=== PATIENT | male | born 1955 | race Caucasian/White ===

== ENCOUNTER → 2016-09-10 | Outpatient (CLI) | payer OTHER ==
[2016-09-10 14:08] LABS: EOSINOPHILS # (AUTO) 0.3 10^3/uL (0.0-0.7); LYMPHOCYTES # (AUTO) 1.3 10^3/uL (1.5-3.5); MEAN CORPUSCULAR HGB CONC 33.3 g/dL (32.0-36.0); MEAN PLATELET VOLUME 8.6 fL (7.4-11.4); NEUTROPHILS # (AUTO) 3.9 10^3/uL (1.5-6.6)
[2016-09-10 14:11] LABS: BASOPHILS % (AUTO) 0.8 %; EOSINOPHILS % (AUTO) 4.8 %; HCT - HEMATOCRIT 45.2 % (42.0-52.0); MEAN CORPUSCULAR HEMOGLOBIN 29.7 pg (27.0-31.0); MEAN CORPUSCULAR VOLUME 89.1 fL (80.0-94.0); MONOCYTES # (AUTO) 0.4 10^3/uL (0.0-1.0); MONOCYTES % (AUTO) 7.3 %; NEUTROPHILS % (AUTO) 65.1 %; NUCLEATED RED BLOOD CELLS AUTO 0.3 /100WBC; RED BLOOD COUNT 5.07 10^6/uL (4.70-6.10); RED CELL DISTRIBUTION WIDTH 13.5 % (12.0-15.0)
[2016-09-10 14:27] LABS: ALBUMIN/GLOBULIN RATIO 1.3 (1.0-2.2); BILIRUBIN,TOTAL 0.8 mg/dL (0.2-1.0); CALCIUM 8.9 mg/dL (8.5-10.3)
== END ==
LOC: LAB.WCP 08:00
PROVIDERS: ATTEND Physician Assistant Medical
DX: R06.09 Other forms of dyspnea (principal); E29.1 Testicular hypofunction
CPT/HCPCS: 36415; 80053; 83880; 85025

== ENCOUNTER 2016-10-20 09:41 | Outpatient (CLI) | payer OTHER ==
[2016-10-20 12:53] LABS: CALCIUM 8.9 mg/dL (8.5-10.3); POTASSIUM 4.1 mmol/L (3.5-5.0)
== END 2016-10-20 09:42 | disposition home or self-care (01) ==
LOC: LAB.WCP 09:41
PROVIDERS: ATTEND Physician Assistant Medical
DX: I25.10 Atherosclerotic heart disease of native coronary artery without angina pectoris (principal)
CPT/HCPCS: 36415; 80048

== ENCOUNTER 2017-03-20 15:44 | Emergency (ER) | payer OTHER ==
--- NOTE | 2017-03-20 16:12 | ED Physician Documentation ---
PD HPI URI - Stated complaint Stated Complaint: COUGH/GREEN MUCUS - Chief complaint Chief Complaint: Resp - History obtained from History obtained from: Patient - History of Present Illness Timing - onset: How many days ago (few) Timing duration: Days Timing details: Gradual onset, Still present Associated symptoms: Chills, Nasal congestion, Productive cough, Dyspnea. No: NVD, Bilateral edema Contributing factors: Sick contact. No: Travel, Immunocompromised, COPD / asthma Similar symptoms before: Has not had sx before Review of Systems Constitutional: reports: Chills, Myalgias. denies: Fever Nose: reports: Congestion Throat: denies: Sore throat Cardiac: denies: Chest pain / pressure, Palpitations Respiratory: reports: Dyspnea, Cough (productive green sputum), Wheezing GI: denies: Abdominal Pain, Nausea, Vomiting, Diarrhea Musculoskeletal: denies: Extremity swelling PD PAST MEDICAL HISTORY - Past Medical History Cardiovascular: Hypertension, High cholesterol, CT Respiratory: None Neuro: None Endocrine/Autoimmune: None GI: GERD - Past Surgical History Past Surgical History: Yes Cardiovascular: Coronary stent - Present Medications Home Medications: Ambulatory Orders Medication Instructions Recorded Confirmed Aspirin/Acetaminophen/Caffeine 1 each PO DAILY 12/11/12 03/20/17 [Headache Relief Caplet] Famotidine [Pepcid] 40 mg PO BID 12/11/12 03/20/17 Metoprolol Tartrate [Lopressor] 75 mg PO BID 12/11/12 03/20/17 Simvastatin [Zocor] 80 mg PO HS 12/11/12 03/20/17 Albuterol Sulf [Ventolin Hfa 1 - 2 puffs INH Q4HR PRN #1 inhaler 03/20/17 Inhaler] Benzonatate [Tessalon] 100 mg PO TID PRN #25 capsule 03/20/17 Dexamethasone [Decadron] 4 mg PO DAILY #5 tablet 03/20/17 Doxycycline Monohydrate 100 mg PO BID #14 tablet 03/20/17 - Allergies Allergies/Adverse Reactions: Allergies Allergy/AdvReac Type Severity Reaction Status Date / Time No Known Drug Allergies Allergy Verified 03/20/17 15:57 - Social History Does the pt smoke?: No Smoking Status: Never smoker Does the pt drink ETOH?: No Does the pt have substance abuse?: Yes PD ED PE NORMAL - General General: Alert and oriented X 3, No acute distress, Well developed/nourished - HEENT HEENT: Atraumatic, Pharynx benign - Neck Neck: Supple, no meningeal sign, No adenopathy - Cardiac Cardiac: RRR, No murmur, No rub - Respiratory Respiratory: Clear bilaterally, Other (bedside U/S showed no obvious pericardial effusion) - Abdomen Abdomen: Soft, Non tender - Male Male : Deferred - Rectal Rectal: Deferred - Derm Derm: Normal color, Warm and dry - Neuro Neuro: Alert and oriented X 3, No motor deficit, Normal speech Results - Vitals Vitals: Oxygen O2 Source Room air - EKG (time done) 16:58 Rate: Rate (enter#) (88) Rhythm: NSR [place]: Normal Intervals: Normal [place] QRS: Normal Ischemia: Normal ST segments, Non specific changes (t wave flattening, no ST changes.). No: ST elevation c/w ischemia, ST depression, T wave inversion - Labs Labs: Laboratory Tests 03/20/17 03/20/17 03/20/17 16:20 16:20 16:20 WBC 9.0 RBC 5.01 Hgb 14.6 Hct 45.5 MCV 90.8 MCH 29.1 MCHC 32.0 RDW 13.0 Plt Count 254 MPV 7.9 Neut # 5.8 Lymph # 1.6 Riley # 1.2 H Eos # 0.3 Baso # 0.1 Absolute Nucleated RBC 0.00 Nucleated RBC % 0.0 Sodium 140 Potassium 3.6 Chloride 102 Carbon Dioxide 26 Anion Gap 12.0 BUN 18 Creatinine 0.9 Estimated GFR (MDRD) 86 L Glucose 111 H Calcium 9.0 Total Bilirubin 0.5 AST 34 ALT 40 Alkaline Phosphatase 103 Troponin I < 0.04 B-Natriuretic Peptide Total Protein 7.3 Albumin 4.1 Globulin 3.2 Albumin/Globulin Ratio 1.3 Lipase 58 H 03/20/17 16:20 WBC RBC Hgb Hct MCV MCH MCHC RDW Plt Count MPV Neut # Lymph # Riley # Eos # Baso # Absolute Nucleated RBC Nucleated RBC % Sodium Potassium Chloride Carbon Dioxide Anion Gap BUN Creatinine Estimated GFR (MDRD) Glucose Calcium Total Bilirubin AST ALT Alkaline Phosphatase Troponin I B-Natriuretic Peptide 46 Total Protein Albumin Globulin Albumin/Globulin Ratio Lipase - Rads (name of study) chest Radiology: Prelim report reviewed, EMP read contemporaneously (no infiltrates nor acute findings; prior granulomatous findings similar to prior. ) PD MEDICAL DECISION MAKING - ED course Complexity details: reviewed results, considered differential, d/w patient Departure - Departure Disposition: 01 Home, Self Care Clinical Impression: Bronchitis Clinical Impression: (Ruled Out): Pneumonia Condition: Stable Record reviewed to determine appropriate education?: Yes Instructions: ED Upper Resp Infec Abx Tx Follow-Up: Terrnace Bernard MD [Primary Care Provider] - Prescriptions: Albuterol Sulf [Ventolin Hfa Inhaler] 1 - 2 puffs INH Q4HR PRN #1 inhaler PRN Reason: Shortness Of Air/Wheezing Benzonatate [Tessalon] 100 mg PO TID PRN #25 capsule PRN Reason: Cough Dexamethasone [Decadron] 4 mg PO DAILY #5 tablet Doxycycline Monohydrate 100 mg PO BID #14 tablet Comments: Infections such as yours can most commonly be viral although your sounds to be more likely bacterial. Use albuterol inhaler 2 puffs 4 times a day and extra times as needed for cough and wheezing. Decadron anti-inflammatory daily for 5 more days. Doxycycline antibiotic twice daily for a week. Use Tessalon if needed for cough. Recheck if not improving over the next several days and return sooner if worsening. Your chest x-ray does not show any signs of pneumonia. There is no signs of heart failure or fluid around the heart. Discharge Date/Time: 03/20/17 18:10
[2017-03-20 16:29] LABS: BASOPHILS # (AUTO) 0.1 10^3/uL (0.0-0.1); BASOPHILS % (AUTO) 1.1 %; EOSINOPHILS # (AUTO) 0.3 10^3/uL (0.0-0.7); EOSINOPHILS % (AUTO) 2.8 %; HGB - HEMOGLOBIN 14.6 g/dL (14.0-18.0); LYMPHOCYTES # (AUTO) 1.6 10^3/uL (1.5-3.5); LYMPHOCYTES % (AUTO) 17.7 %; MEAN CORPUSCULAR HEMOGLOBIN 29.1 pg (27.0-31.0); MEAN CORPUSCULAR VOLUME 90.8 fL (80.0-94.0); MEAN PLATELET VOLUME 7.9 fL (7.4-11.4); MONOCYTES # (AUTO) 1.2 10^3/uL (0.0-1.0); MONOCYTES % (AUTO) 13.1 %; NEUTROPHILS # (AUTO) 5.8 10^3/uL (1.5-6.6); NEUTROPHILS % (AUTO) 65.3 %; PLT - PLATELET COUNT 254 10^3/uL (130-450); RED BLOOD COUNT 5.01 10^6/uL (4.70-6.10)
--- NOTE | 2017-03-20 16:35 | XRAY Report ---
EXAM: CHEST RADIOGRAPHY EXAM DATE: 03/20/2017 04:19 PM. CLINICAL HISTORY: Productive cough. COMPARISON: 07/31/2008. TECHNIQUE: 1 view. FINDINGS: Lungs/Pleura: Multiple calcified granulomas are again seen. No consolidation. No pneumothorax. No vas cular congestion. Mediastinum: Heart size is upper normal. Aorta is mildly tortuous. Other: Changes are seen from median sternotomy in the interval and likely bypass surgery. IMPRESSION: 1. No acute disease in the chest. 2. Multiple calcified granulomas consistent with prior granulomatous disease, unchanged. [facility] Referring Provider Line: [phone] SITE ID: [id number]
[2017-03-20 16:39] LABS: ALBUMIN 4.1 g/dL (3.2-5.5); ALBUMIN/GLOBULIN RATIO 1.3 (1.0-2.2); BILIRUBIN,TOTAL 0.5 mg/dL (0.2-1.0); CREATININE 0.9 mg/dL (0.6-1.2); TOTAL PROTEIN 7.3 g/dL (6.7-8.2)
[2017-03-20] MEDS ORDERED: ALBUTEROL NEB 2.5 MG/3 ML INH STA (16:42)
[2017-03-20] MEDS ORDERED: BENZONATATE 100 MG CAPSULE PO STA (16:43)
[2017-03-20] MEDS ORDERED: DOXYCYCLINE 100 MG TABLET PO STA (16:43)
[2017-03-20] MEDS ORDERED: DEXAMETHASONE 10 MG/ML VIAL PO STA (16:43)
[2017-03-20] MEDS ORDERED: CHERRY SYRUP 10 ML UDC PO ONE (17:27)
[2017-03-20 20:01] VITALS: BP 156/82
== END 2017-03-20 18:10 | disposition home or self-care (01) ==
LOC: ED 15:44
DX: J40 Bronchitis, not specified as acute or chronic (principal); I10 Essential (primary) hypertension; I25.2 Old myocardial infarction; E78.00 Pure hypercholesterolemia, unspecified; Z79.82 Long term (current) use of aspirin; Z95.5 Presence of coronary angioplasty implant and graft
CPT/HCPCS: 36415; 71045; 80053; 83690; 83880; 84484; 85025; 93005; 94640; 99283; A9270; J7613

== ENCOUNTER 2017-11-29 16:10 | Outpatient (CLI) | payer OTHER ==
[2017-11-29 19:08] LABS: BASOPHILS # (AUTO) 0.1 10^3/uL (0.0-0.1); EOSINOPHILS # (AUTO) 0.4 10^3/uL (0.0-0.7); EOSINOPHILS % (AUTO) 4.8 %; HGB - HEMOGLOBIN 15.3 g/dL (14.0-18.0); LYMPHOCYTES # (AUTO) 1.8 10^3/uL (1.5-3.5); LYMPHOCYTES % (AUTO) 23.9 %; MEAN CORPUSCULAR HEMOGLOBIN 30.9 pg (27.0-31.0); MEAN CORPUSCULAR HGB CONC 34.5 g/dL (32.0-36.0); MEAN CORPUSCULAR VOLUME 89.4 fL (80.0-94.0); MEAN PLATELET VOLUME 8.4 fL (7.4-11.4); MONOCYTES # (AUTO) 0.8 10^3/uL (0.0-1.0); NEUTROPHILS # (AUTO) 4.6 10^3/uL (1.5-6.6); NEUTROPHILS % (AUTO) 60.3 %; PLT - PLATELET COUNT 195 10^3/uL (130-450); RED BLOOD COUNT 4.97 10^6/uL (4.70-6.10); RED CELL DISTRIBUTION WIDTH 13.6 % (12.0-15.0); WHITE BLOOD COUNT 7.6 x10^3/uL (4.8-10.8)
[2017-11-29 19:22] LABS: CALCIUM 8.9 mg/dL (8.5-10.3); CARBON DIOXIDE - CO2 30 mmol/L (21-32); CHLORIDE 101 mmol/L (101-111); GLUCOSE 109 mg/dL (70-100); SODIUM 139 mmol/L (135-145)
[2017-11-29 20:01] LABS: ALBUMIN/GLOBULIN RATIO 1.2 (1.0-2.2); ALKALINE PHOSPHATASE 96 IU/L (42-121); ALT ALANINE AMINOTRANSFERASE 20 IU/L (10-60); AST ASPARTATE AMINOTRANSFERASE 23 IU/L (10-42); BILIRUBIN,TOTAL 0.4 mg/dL (0.2-1.0); BUN - BLOOD UREA NITROGEN 29 mg/dL (6-20); CHOL/HDL RATIO 3.1 (<5.0); CHOLESTEROL 214 mg/dL; GFR - MDRD 75 (>89); HDL CHOLESTEROL 69 mg/dL; LDL CHOLESTEROL,CALCULATED 104 mg/dL; LDL/HDL RATIO 1.5 (<3.6); TOTAL PROTEIN 7.4 g/dL (6.7-8.2); VLDL CHOLESTEROL 41 mg/dL
== END 2017-11-29 16:11 | disposition home or self-care (01) ==
LOC: LAB.WCP 16:10
PROVIDERS: ATTEND Physician Assistant Medical
DX: Z00.00 Encounter for general adult medical examination without abnormal findings (principal); R06.00 Dyspnea, unspecified; Z12.5 Encounter for screening for malignant neoplasm of prostate
CPT/HCPCS: 36415; 80053; 80061; 83721; 83880; 84153; 84443; 85025

== ENCOUNTER 2018-08-06 20:27 | Emergency (ER) | payer OTHER ==
[2018-08-06] MEDS ORDERED: HYDROcod/ACET 5/325 Prepack 4 PO STA (21:09)
--- NOTE | 2018-08-06 21:12 | ED Physician Documentation ---
PD HPI LOWER EXT INJURY - Stated complaint Stated Complaint: R KNEE PX - Chief complaint Chief Complaint: Trauma Ext - History obtained from History obtained from: Patient - History of Present Illness PD HPI LOW EXT INJURY LOCATION: Right (3 days ago he was carrying a large sink down his stairs at home and he slipped and missed a step and banged his knee on the ground. He has persistent internal right knee pain and difficulty walking. No other injuries.) Review of Systems Constitutional: reports: Reviewed and negative Throat: reports: Reviewed and negative Cardiac: reports: Reviewed and negative Respiratory: reports: Reviewed and negative PD PAST MEDICAL HISTORY - Past Medical History Past Medical History: Yes Cardiovascular: Hypertension, High cholesterol, [place] Respiratory: None Endocrine/Autoimmune: None GI: GERD - Past Surgical History Past Surgical History: Yes Cardiovascular: Coronary stent - Present Medications Home Medications: Ambulatory Orders Medication Instructions Recorded Confirmed Aspirin/Acetaminophen/Caffeine 1 each PO DAILY 12/11/12 08/06/18 [Headache Relief Caplet] Famotidine [Pepcid] 40 mg PO BID 12/11/12 08/06/18 Metoprolol Tartrate [Lopressor] 75 mg PO BID 12/11/12 08/06/18 Simvastatin [Zocor] 80 mg PO HS 12/11/12 08/06/18 Hydrocodone/Acetaminophen 1 - 2 each PO Q6H PRN #14 tablet 08/06/18 [Hydrocodon-Acetaminophen 5-325] - Allergies Allergies/Adverse Reactions: Allergies Allergy/AdvReac Type Severity Reaction Status Date / Time No Known Drug Allergies Allergy Verified 08/06/18 20:42 - Social History Does the pt smoke?: No Smoking Status: Never smoker Does the pt drink ETOH?: No Does the pt have substance abuse?: Yes Substance Use and Type: Marijuana - Immunizations Immunizations are current?: No Immunizations: TDAP >10years/unknown - POLST Patient has POLST: No PD ED PE NORMAL - Vitals Vital signs reviewed: Yes - General General: Alert and oriented X 3, No acute distress - Extremities Extremities: Other (There is a small right knee joint effusion, there is no particular tenderness of the knee itself. Positive grind testing and slightly lax MCL the remainder of his ligamentous testing is normal.) - Neuro Neuro: Alert and oriented X 3, Normal speech - Psych Psych: Normal mood, Normal affect Results - Vitals Vitals: Vital Signs - 24 hr 08/06/18 20:37 Temperature 36.3 C L Heart Rate 82 Respiratory 16 Rate Blood Pressure 148/91 H O2 Saturation 97 Oxygen O2 Source Room air Departure - Departure Disposition: 01 Home, Self Care Clinical Impression: Derangement, knee internal Qualifiers: Laterality: right Qualified Code(s): M23.91 - Unspecified internal derangement of right knee Condition: Good Record reviewed to determine appropriate education?: Yes Instructions: ED Meniscal Injury Knee Poss Follow-Up: [facility] [Provider Group] - Within 1 week Prescriptions: Hydrocodone/Acetaminophen [Hydrocodon-Acetaminophen 5-325] 1 - 2 each PO Q6H PRN #14 tablet PRN Reason: pain Comments: Call the orthopedic surgeon's office on Wednesday to arrange for follow-up appointment. Return for new or worsening symptoms. Do not drink or drive while taking prescription narcotic pain medication. He do not need to wear the splint in bed or bathing or driving but when you are up and around you should wear it.
--- NOTE | 2018-08-06 21:40 | XRAY Report ---
Reason: knee inj Procedure Date: 08/06/2018 Accession Number: [id number] / [id number] Procedure: XR - Knee 4 View RT CPT Code: FULL RESULT: EXAM: RIGHT KNEE RADIOGRAPHY EXAM DATE: 08/06/2018 09:30 PM. CLINICAL HISTORY: Knee injury. Mr. Myers carrying heavy object down stairs and landed hard on right knee while locked out, pain with weightbearing and movement. Decreased range of motion. COMPARISON: None. TECHNIQUE: 4 views. FINDINGS: Small knee joint effusion. Minimal patellofemoral degenerative joint disease with osteophytes. No subluxation. No evidence for acute fracture. IMPRESSION: Small knee joint effusion. Minimal patellofemoral degenerative joint disease. No evidence for acute fracture. [facility]
[2018-08-06 22:04] VITALS: BP 176/83
== END 2018-08-06 22:01 | disposition home or self-care (01) ==
LOC: ED 20:27
DX: M23.91 Unspecified internal derangement of right knee (principal); W20.8XXA Other cause of strike by thrown, projected or falling object, initial encounter; Y93.89 Activity, other specified; Y92.009 Unspecified place in unspecified non-institutional (private) residence as the place of occurrence of the external cause; I10 Essential (primary) hypertension
CPT/HCPCS: 99283

== ENCOUNTER 2019-03-05 09:47 | Emergency (ER) | payer OTHER ==
[2019-03-05] MEDS ORDERED: MORPHINE 10 MG/ML VIAL IVP STA (10:37)
[2019-03-05] MEDS ORDERED: ONDANSETRON 4 MG/2 ML VIAL IVP STA (10:37)
--- NOTE | 2019-03-05 10:41 | ED Physician Documentation ---
History of Present Illness - Stated complaint Stated Complaint: ABD PX - Chief complaint Chief Complaint: Back Pain - Additonal information Additional information: Is a 63-year-old male with a history of 2 previous MIs, status post CABG x4, presents with nontraumatic back pain. Patient states that he began having some pain in his lower back is feels like it is deep to the spine around 4 days ago. This is been fairly constant but mild and then this [facility] he began developing worsening pain. He states it is severe it radiates somewhat towards the front of his abdomen. He has not noticed any blood in his urine, no dysuria, he has no history of Kidney stones, abdominal surgery, or known aortic problems. Review of Systems Constitutional: denies: Fever Nose: denies: Rhinorrhea / runny nose Cardiac: denies: Chest pain / pressure Respiratory: denies: Dyspnea GI: reports: Abdominal Pain. denies: Nausea : denies: Dysuria Skin: denies: Rash Musculoskeletal: reports: Back pain Neurologic: denies: Generalized weakness, Focal weakness, Numbness PD PAST MEDICAL HISTORY - Past Medical History Cardiovascular: Hypertension, High cholesterol, [place] Respiratory: None Endocrine/Autoimmune: None GI: GERD - Past Surgical History Past Surgical History: Yes Cardiovascular: Coronary stent - Present Medications Home Medications: Ambulatory Orders Medication Instructions Recorded Confirmed Aspirin/Acetaminophen/Caffeine 1 each PO DAILY 12/11/12 08/06/18 [Headache Relief Caplet] Famotidine [Pepcid] 40 mg PO BID 12/11/12 08/06/18 Metoprolol Tartrate [Lopressor] 75 mg PO BID 12/11/12 08/06/18 Simvastatin [Zocor] 80 mg PO HS 12/11/12 08/06/18 Hydrocodone/Acetaminophen 1 - 2 each PO Q6H PRN #14 tablet 08/06/18 [Hydrocodon-Acetaminophen 5-325] Cyclobenzaprine [Flexeril] 10 mg PO TID PRN #20 tablet 03/05/19 Lidocaine Patch 5% [Lidoderm Patch] 1 each TOP DAILY PRN #7 patch 03/05/19 - Allergies Allergies/Adverse Reactions: Allergies Allergy/AdvReac Type Severity Reaction Status Date / Time No Known Drug Allergies Allergy Verified 03/05/19 09:57 - Social History Does the pt smoke?: No Smoking Status: Never smoker Does the pt drink ETOH?: No Does the pt have substance abuse?: Yes - Immunizations Immunizations are current?: No Immunizations: TDAP >10years/unknown - POLST Patient has POLST: No PD ED PE NORMAL - Vitals Vital signs reviewed: Yes - General General: Alert and oriented X 3, Other (Nontoxic-appearing but uncomfortable.) - HEENT HEENT: Atraumatic, PERRL - Neck Neck: Supple, no meningeal sign - Cardiac Cardiac: RRR, No murmur - Respiratory Respiratory: No respiratory distress, Clear bilaterally - Abdomen Abdomen: Normal bowel sounds, Soft, Non tender, Non distended - Derm Derm: Warm and dry - Extremities Extremities: No deformity - Neuro Neuro: Alert and oriented X 3, call center coordinator 2-12 intact, No motor deficit, No sensory deficit, Normal speech - Psych Psych: Normal mood, Normal affect Results - Vitals Vitals: Oxygen O2 Source Room air - Labs Labs: Laboratory Tests 03/05/19 03/05/19 03/05/19 10:44 10:44 10:44 WBC 6.9 RBC 5.68 Hgb 17.0 Hct 50.7 MCV 89.3 MCH 29.9 MCHC 33.5 RDW 13.0 Plt Count 223 MPV 9.7 Neut # (Auto) 4.1 Lymph # (Auto) 1.7 Love # (Auto) 0.7 Eos # (Auto) 0.3 Baso # (Auto) 0.1 Absolute Nucleated RBC 0.00 Nucleated RBC % 0.0 PT 12.7 H INR 1.1 Sodium 136 Potassium 4.8 Chloride 101 Carbon Dioxide 27 Anion Gap 8.0 BUN 24 H Creatinine 1.0 Estimated GFR (MDRD) 75 L Glucose 102 H Calcium 9.2 Total Bilirubin 0.5 AST 18 ALT 19 Alkaline Phosphatase 102 Total Protein 7.9 Albumin 4.4 Globulin 3.5 Albumin/Globulin Ratio 1.3 Lipase 60 H Urine Color Urine Clarity Urine pH Ur Specific [place] Urine Protein Urine Glucose (UA) Urine Ketones Urine Occult Blood Urine Nitrite Urine Bilirubin Urine Urobilinogen Ur Leukocyte Esterase Ur Microscopic Review Urine Culture Comments 03/05/19 10:49 WBC RBC Hgb Hct MCV MCH MCHC RDW Plt Count MPV Neut # (Auto) Lymph # (Auto) Love # (Auto) Eos # (Auto) Baso # (Auto) Absolute Nucleated RBC Nucleated RBC % PT INR Sodium Potassium Chloride Carbon Dioxide Anion Gap BUN Creatinine Estimated GFR (MDRD) Glucose Calcium Total Bilirubin AST ALT Alkaline Phosphatase Total Protein Albumin Globulin Albumin/Globulin Ratio Lipase Urine Color YELLOW Urine Clarity CLEAR Urine pH 6.0 Ur Specific [place] 1.015 Urine Protein NEGATIVE Urine Glucose (UA) NEGATIVE Urine Ketones NEGATIVE Urine Occult Blood NEGATIVE Urine Nitrite NEGATIVE Urine Bilirubin NEGATIVE Urine Urobilinogen 0.2 (NORMAL) Ur Leukocyte Esterase NEGATIVE Ur Microscopic Review NOT INDICATED Urine Culture Comments NOT INDICATED - Rads (name of study) CT abd/pelvis Radiology: Other (No acute inflammatory or obstructive process to explain back pain) PD MEDICAL DECISION MAKING - ED course Complexity details: considered differential (Back strain, AAA, pyelonephritis, nephrolithiasis, constipation, fracture) ED course: Pt is non-toxic but hypertensive on arrival. He is neurologically intact. Labs are unremarkable, urine negative for infection. Given his age and back pain, CT abd/pelvis was obtained and did not show fracture, aneurysm, or other obvious cause of his pain. On repeat examination pt is well-appearing, resting in bed calmly and he is feeling better after a dose of pain medications. The pain is quite low in his back, and I highly doubt dissection, especially in the setting of his unremarkable CT. No chest pain, no SOA. Pt is ambulatory, well-appearing, and feeling better. I discussed our results, prescribed flexeril for possible MSK pain, and discussed PCP follow up as well as strict return precautions with any new or worsening symptoms. Pt agrees and was discharged home in the care of his . Departure - Departure Disposition: 01 Home, Self Care Clinical Impression: Back pain Qualifiers: Back pain location: low back pain Chronicity: acute Back pain laterality: un specified Sciatica presence: without sciatica Qualified Code(s): M54.5 - Low back pain Condition: Good Follow-Up: Sina Varner MD [Primary Care Provider] - Within 1 week Prescriptions: Cyclobenzaprine [Flexeril] 10 mg PO TID PRN #20 tablet PRN Reason: Spasms Lidocaine Patch 5% [Lidoderm Patch] 1 each TOP DAILY PRN #7 patch PRN Reason: Pain Comments: You were seen today for pain in your lower back, your CT scan did not show an obvious cause of your pain, and your labs are reassuring. I am not sure the exact cause of her pain, it may be musculoskeletal in nature. In addition to [id number] pain relievers try the cyclobenzaprine, you may try the lidocaine patches as well. If you are developing new or concerning symptoms such as worsening pain, pain or weakness in your legs, passing out, repeated episodes of vomiting, return to the emergency department. Discharge Date/Time: 03/05/19 13:40
[2019-03-05 10:48] LABS: BASOPHILS # (AUTO) 0.1 10^3/uL (0.0-0.1); EOSINOPHILS # (AUTO) 0.3 10^3/uL (0.0-0.7); EOSINOPHILS % (AUTO) 4.5 %; LYMPHOCYTES # (AUTO) 1.7 10^3/uL (1.5-3.5); LYMPHOCYTES % (AUTO) 25.1 %; MEAN CORPUSCULAR HEMOGLOBIN 29.9 pg (27.0-31.0); MEAN CORPUSCULAR HGB CONC 33.5 g/dL (32.0-36.0); MEAN CORPUSCULAR VOLUME 89.3 fL (80.0-94.0); MEAN PLATELET VOLUME 9.7 fL (7.4-11.4); MONOCYTES # (AUTO) 0.7 10^3/uL (0.0-1.0); NEUTROPHILS # (AUTO) 4.1 10^3/uL (1.5-6.6); NEUTROPHILS % (AUTO) 59.1 %; PLT - PLATELET COUNT 223 10^3/uL (130-450); RED BLOOD COUNT 5.68 10^6/uL (4.70-6.10); WHITE BLOOD COUNT 6.9 x10^3/uL (4.8-10.8)
[2019-03-05 10:54] LABS: INR 1.1 (0.8-1.2); PT - PROTHROMBIN TIME 12.7 secs (9.9-12.6)
[2019-03-05 10:56] LABS: BILIRUBIN,URINE NEGATIVE (NEGATIVE); CLARITY,URINE CLEAR (CLEAR); GLUCOSE, URINE (UA) NEGATIVE (NEGATIVE); KETONES,URINE (UA) NEGATIVE (NEGATIVE); LEUKOCYTE ESTERASE, URINE NEGATIVE (NEGATIVE); NITRITE,URINE NEGATIVE (NEGATIVE); OCCULT BLOOD,URINE NEGATIVE (NEGATIVE); PROTEIN,URINE NEGATIVE (NEGATIVE); UROBILINOGEN,URINE 0.2 (NORMAL) E.U./dL (NORMAL)
[2019-03-05 11:01] LABS: ALBUMIN 4.4 g/dL (3.2-5.5); ALBUMIN/GLOBULIN RATIO 1.3 (1.0-2.2); BILIRUBIN,TOTAL 0.5 mg/dL (0.2-1.0); CALCIUM 9.2 mg/dL (8.5-10.3); TOTAL PROTEIN 7.9 g/dL (6.7-8.2)
[2019-03-05] MEDS ORDERED: IOVERSOL 320 100 ML VIAL IVP ONE ×2 (11:05→11:34)
--- NOTE | 2019-03-05 12:29 | CT Report ---
Reason: Lower back and abdominal pain acute, nonlocalized Procedure Date: 03/05/2019 Accession Number: [id number] / [id number] Procedure: CT - Abdomen/Pelvis W CPT Code: Final Report FULL RESULT: EXAM: CT ABDOMEN AND PELVIS EXAM DATE: 03/05/2019 11:33 AM. CLINICAL HISTORY: Lower back and abdominal pain acute, nonlocalized. COMPARISONS: ABDOMEN/PELVIS W/ 12/11/2012 4:38 PM. TECHNIQUE: Routine helical CT imaging was performed through the abdomen and pelvis. IV contrast: OPTI 320 100ML. Enteric contrast: No. Reconstructions: Coronal and sagittal. In accordance with CT protocol optimization, one or more of the following dose reduction techniques were utilized for this exam: automated exposure control, adjustment of mA and/or KV based on patient size, or use of iterative reconstructive technique. FINDINGS: Lung Bases: Partially imaged median sternotomy wires. Numerous small bibasilar calcified granulomata and calcified bilateral hilar nodes, compatible with sequela of remote granulomatous infection. Liver: Few unchanged calcified granulomata. No focal hepatic lesion. Gallbladder/Bile Ducts: Unremarkable. No visualized stones or biliary ductal dilatation. Spleen: Numerous tiny calcified granulomata. Pancreas: Normal. Adrenal Glands: Normal. Kidneys and Ureters: Several tiny circumscribed subcentimeter round hypoattenuating foci in the left renal cortex are too small to definitively characterize but likely represent cysts. No stones, hydronephrosis, or hydroureter. Peritoneal Cavity/Bowel: Sigmoid colon diverticulosis without associated focal colon wall thickening or adjacent mesenteric fat stranding to suggest acute diverticulitis. No evidence for bowel obstruction. The appendix is normal. No free fluid, pneumoperitoneum, or adenopathy. Pelvic Organs: The bladder and visualized reproductive organs are within normal limits. Vasculature: Trace atherosclerotic calcifications within the aorta and iliac arteries. Bones: Mild to moderate multilevel degenerative disk disease in the lumbar spine, most pronounced at L2-L3. Moderate facet arthropathy in the lower lumbar spine. 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 No acute bony abnormality. Other: Unchanged small fat-containing umbilical and bilateral inguinal hernias, without evidence for inflammation. IMPRESSION: No acute inflammatory or obstructive process identified to explain lower back and abdominal pain. [facility]
[2019-03-05 13:36] VITALS: BP 146/93
== END 2019-03-05 13:40 | disposition home or self-care (01) ==
LOC: ED 09:47
DX: M54.5 Low back pain (principal); I10 Essential (primary) hypertension
CPT/HCPCS: 36415; 74177; 80053; 81003; 83690; 85025; 85610; 96374; 99283; 99284; Q9967; 81001; 87086

== ENCOUNTER 2023-09-28 09:57 | Emergency (ER) | payer MEDICARE, OTHER ==
[2023-09-28 10:37] LABS: BASOPHILS # (AUTO) 0.1 10^3/uL (0.0-0.1); BASOPHILS % (AUTO) 0.9 %; EOSINOPHILS # (AUTO) 0.3 10^3/uL (0.0-0.7); EOSINOPHILS % (AUTO) 4.3 %; HCT - HEMATOCRIT 48.3 % (42.0-52.0); HGB - HEMOGLOBIN 15.6 g/dL (14.0-18.0); LYMPHOCYTES % (AUTO) 43.1 %; MEAN CORPUSCULAR HEMOGLOBIN 28.7 pg (27.0-31.0); MEAN CORPUSCULAR HGB CONC 32.3 g/dL (32.0-36.0); MEAN PLATELET VOLUME 10.1 fL (7.4-11.4); MONOCYTES # (AUTO) 0.6 10^3/uL (0.0-1.0); MONOCYTES % (AUTO) 9.1 %; NEUTROPHILS % (AUTO) 42.3 %; PLT - PLATELET COUNT 160 10^3/uL (130-450); RED BLOOD COUNT 5.43 10^6/uL (4.70-6.10); RED CELL DISTRIBUTION WIDTH 13.1 % (12.0-15.0)
[2023-09-28 10:49] LABS: ALBUMIN 4.3 g/dL (3.2-5.5); ALBUMIN/GLOBULIN RATIO 1.6 (1.0-2.2); BILIRUBIN,TOTAL 0.5 mg/dL (0.2-1.0); CREATININE 0.9 mg/dL (0.6-1.3); MAGNESIUM 1.8 mg/dL (1.7-2.3); POTASSIUM 4.3 mmol/L (3.5-4.5)
--- NOTE | 2023-09-28 10:51 | XRAY Report ---
PROCEDURE: Chest 1V INDICATIONS: Chest pain TECHNIQUE: One view of the chest was acquired. COMPARISON: None. FINDINGS: Surgical changes and devices: Sternotomy. Lungs and pleura: No pleural effusions or pneumothorax. Lungs are clear. Diffuse calcified granul dexter. Mediastinum: Mediastinal contours appear normal. Heart size is normal. Bones and chest wall: No suspicious bony lesions. Overlying soft tissues appear unremarkable. IMPRESSION: No acute cardiopulmonary process. Reviewed by: Trell Schilling MD on 09/28/2023 10:50 AM PDT Approved by: Trell Schilling MD on 09/28/2023 10:50 AM PDT Station ID: [id number]
[2023-09-28 10:56] LABS: TROPONIN I HIGH SENSITIVITY 5.3 ng/L (2.3-19.7)
--- NOTE | 2023-09-28 11:08 | ED Physician Documentation ---
History of Present Illness - Stated complaint Stated Complaint: HIGH BP - Chief complaint Chief Complaint: Cardiac - Additonal information Additional information: Patient is a 67-year-old male past medical history of coronary artery disease, hypertension hyperlipidemia. Patient presents with elevated blood pressure readings going on for about 1 day and a half. He notes he took his blood pressure yesterday it was in the 140s and 150s after he was feeling tightness in his head. He noted his blood pressure was higher than normal but he has recently been increased about 3 months ago to 50 mg metoprolol twice daily he notes he has been compliant with these medications has not missed any doses. Patient has history of smoking multiple years ago but no current history of smoking. He denies any numbness or tingling in his legs. No chest pain no shortness of breath no lower leg swelling. Denies any vision changes or headaches at this time. He did take his blood pressure medications this morning. 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 He denies any lower back pain at this time. PD PAST MEDICAL HISTORY - Past Medical History Cardiovascular: Hypertension, High cholesterol, HI Respiratory: None Endocrine/Autoimmune: None GI: GERD - Past Surgical History Past Surgical History: Yes Cardiovascular: Coronary stent - Present Medications Home Medications: Ambulatory Orders Medication Instructions Recorded Confirmed Aspirin/Acetaminophen/Caffeine 1 each PO DAILY 12/11/12 08/06/18 [Headache Relief Caplet] Famotidine [Pepcid] 40 mg PO BID 12/11/12 08/06/18 Metoprolol Tartrate [Lopressor] 75 mg PO BID 12/11/12 08/06/18 Simvastatin [Zocor] 80 mg PO HS 12/11/12 08/06/18 Hydrocodone/Acetaminophen 1 - 2 each PO Q6H PRN #14 tablet 08/06/18 [Hydrocodon-Acetaminophen 5-325] Cyclobenzaprine [Flexeril] 10 mg PO TID PRN #20 tablet 03/05/19 Lidocaine Patch 5% [Lidoderm Patch] 1 each TOP DAILY PRN #7 patch 03/05/19 - Allergies Allergies/Adverse Reactions: Allergies Allergy/AdvReac Type Severity Reaction Status Date / Time No Known Drug Allergies Allergy Verified 09/28/23 10:05 - Social History Does the pt smoke?: No Smoking Status: Never smoker Does the pt drink ETOH?: No Does the pt have substance abuse?: Yes - Immunizations Immunizations are current?: No Immunizations: TDAP >10years/unknown - POLST Patient has POLST: No PD ED PE NORMAL - Vitals Vital signs reviewed: Yes - General General: Alert and oriented X 3 - HEENT HEENT: Atraumatic, PERRL, EOMI - Neck Neck: Supple, no meningeal sign - Cardiac Cardiac: RRR, No murmur, No gallop, No rub - Respiratory Respiratory: No respiratory distress, Clear bilaterally - Abdomen Abdomen: Normal bowel sounds, Non tender, Non distended, Other (No pulsatile mass ) - Back Back: No CVA TTP, Other (No palpable lumbar thoracic or cervical spinous process tenderness. No obvious swelling. Pulses are intact distally bilaterally equal 2+ DP/PT 2+ and radial 2+) - Extremities Extremities: No deformity - Neuro Neuro: Alert and oriented X 3 - Psych Psych: Normal mood Results - Vitals Vitals: Vital Signs - 24 hr 09/28/23 09/28/23 09/28/23 10:00 11:05 11:14 Temperature 36.7 C Heart Rate 69 69 Respiratory 18 17 17 Rate Blood Pressure 174/98 H 190/108 H O2 Saturation 98 98 09/28/23 12:11 Temperature Heart Rate Respiratory Rate Blood Pressure 211/110 H O2 Saturation Oxygen O2 Source Room air - Labs Labs: Laboratory Tests 09/28/23 09/28/23 09/28/23 10:25 10:25 10:25 WBC 7.0 RBC 5.43 Hgb 15.6 Hct 48.3 MCV 89.0 MCH 28.7 MCHC 32.3 RDW 13.1 Plt Count 160 MPV 10.1 Neut # (Auto) 3.0 Lymph # (Auto) 3.0 [place] # (Auto) 0.6 Eos # (Auto) 0.3 Baso # (Auto) 0.1 Absolute Nucleated RBC 0.00 Nucleated RBC % 0.0 D-Dimer < 200.0 L Sodium 135 Potassium 4.3 Chloride 102 Carbon Dioxide 28 Anion Gap 5.0 L BUN 18 Creatinine 0.9 Estimated GFR (MDRD) 84 L Glucose 106 H Calcium 9.0 Magnesium 1.8 Total Bilirubin 0.5 AST 17 ALT 15 Alkaline Phosphatase 99 Troponin I High Sens 5.3 B-Natriuretic Peptide Total Protein 7.0 Albumin 4.3 Globulin 2.7 Albumin/Globulin Ratio 1.6 Lipase 45 09/28/23 10:25 WBC RBC Hgb Hct MCV MCH MCHC RDW Plt Count MPV Neut # (Auto) Lymph # (Auto) [place] # (Auto) Eos # (Auto) Baso # (Auto) Absolute Nucleated RBC Nucleated RBC % D-Dimer Sodium Potassium Chloride Carbon Dioxide Anion Gap BUN Creatinine Estimated GFR (MDRD) Glucose Calcium Magnesium Total Bilirubin AST ALT Alkaline Phosphatase Troponin I High Sens B-Natriuretic Peptide 71 Total Protein Albumin Globulin Albumin/Globulin Ratio Lipase - Rads (name of study) Chest X-ray Relevant Findings:: EMP independent interpretation of test (No acute cariopulmonary findings) PD Medical Decision Making - ED course Complexity details: reviewed old records ED course: Patient is a 67-year-old male presenting to the emergency department with sympt oms of lower back pain and elevated blood pressure readings at home. Patient takes his blood pressure readings in the morning take it yesterday after he was feeling some headaches and tightness in his head. Patient's blood pressure was in the 150s yesterday he felt similar symptoms earlier today and took his blood pressure in the 190s. On arrival patient's blood pressure 174/98. Labs were obtained while patient was in triage are reassuring he is asymptomatic at this time has history of chronic low back pain denies any worsening pain today. Physical exam shows pulses intact in upper and lower extremities. Good capillary refill in upper and lower extremities. Normal cardiac sounds on auscultation. Normal lung sounds on auscultation of the lungs. No focal neurodeficits cranial nerves III through XII intact. Blood pressures obtained in bilateral upper extremities and are < 20 change bilaterally. Lidocaine patch and hydralazine ordered here in the emergency department for symptoms. Blood pressure improved here in the emergency department to 183 SBP While provider was in the room. Patient remains asymptomatic here in the emergency department he feels safe to go home. Given only 2 days of elevated blood pressure readings will not increase metoprolol dose here in the emergency department. Instructed patient he should follow-up with his PCP and continue to monitor blood pressure at home he should return with any chest pain shortness of breath vision changes headaches numbness or tingling in upper extremities or lower extremities. Discussed with patient reassuring findings given no significant change in elevated blood pressure readings compared from right upper extremity to left upper extremity and pulses intact in upper and lower extremities with no positive D-dimer troponin is negative and EKG showing no acute changes patient is safe to be discharged home he is agreeable with this plan. Departure - Departure Disposition: 01 Home, Self Care Clinical Impression: Hypertension, Chronic low back pain Condition: Good Instructions: ED Low Back Pain Injury Follow-Up: Sina Varner MD [Primary Care Provider] - Comments: Continue to follow-up with primary care doctor as instructed at home return to emergency department with any chest pain dizziness shortness of breath lower leg swelling vision changes headaches numbness or tingling in extremities. Your workup here in the emergency department was reassuring otherwise. You can take your Flexeril at home for lower back pain but if it becomes severe return to emergency department. Forms: PCP List
[2023-09-28] MEDS: LIDOCAINE PATCH 5% TOP STA (11:29)
[2023-09-28] MEDS: hydrALAZINE 10 MG TABLET PO ONE (12:39)
[2023-09-28 13:59] VITALS: BP 183/105; O2SAT 96
== END 2023-09-28 13:47 | disposition home or self-care (01) ==
LOC: ED 09:57
DX: I10 Essential (primary) hypertension (principal); M54.50 Low back pain, unspecified; G89.29 Other chronic pain; E78.00 Pure hypercholesterolemia, unspecified; I25.10 Atherosclerotic heart disease of native coronary artery without angina pectoris; I25.2 Old myocardial infarction; Z79.899 Other long term (current) drug therapy; Z87.891 Personal history of nicotine dependence
CPT/HCPCS: 36415; 71045; 80053; 83690; 83735; 83880; 84484; 85025; 85379; 93005; 99284; A9270